=== PATIENT | female | born 1995 | race American Indian/Alaskan Native ===

== ENCOUNTER 2021-11-18 21:19 | Emergency (ER) | payer SELFPAY ==
[2021-11-18] MEDS ORDERED: Ondansetron 4 MG/2 ML SDV IVPUSH ONE (22:13)
[2021-11-18] MEDS ORDERED: Sodium Chloride 0.9% 1,000 ML IV ONE (22:13)
[2021-11-18] MEDS ORDERED: Morphine 4 MG/ML VIAL IVPUSH ONE (22:13)
[2021-11-18 22:50] LABS: BLOOD UREA NITROGEN,BUN 10 mg/dL (7.0-18.0); CARBON DIOXIDE,CO2 25.6 mmol/L (21.0-32.0); CHLORIDE,CL 103 mmol/L (98-107); GLUCOSE RANDOM 96 mg/dL (74-106); LIPASE 74 U/L (73-393); POTASSIUM,K 3.9 mmol/L (3.5-5.1); SODIUM,NA 140 mmol/L (136-145)
[2021-11-18] MEDS ORDERED: HYDROmorphone 1 MG/ML Syringe IVPUSH ONE (23:03)
[2021-11-19] MEDS ORDERED: Iopamidol 755 MG/ML 500 ML Multipack Bottle IVPUSH STA (00:10)
[2021-11-19] MEDS ORDERED: HYDROmorphone 1 MG/ML Syringe IVPUSH ONE (01:15)
[2021-11-19] MEDS ORDERED: Acetaminophen/oxyCODONE 325-5 MG Tab PO ONE (02:39)
== END 2021-11-19 02:46 | disposition home or self-care (01) ==
LOC: MW.ED 21:19
DX: N83.201 Unspecified ovarian cyst, right side (principal)
CPT/HCPCS: 36415; 74177; 76857; 80053; 81003; 83690; 84703; 85025; 96374; 96375; 96376; 99284; A9270; J1170; J2270; J2405; J7030; Q9967

== ENCOUNTER 2022-02-01 17:39 | Emergency (ER) | payer MEDICAID, OTHER | END 2022-02-01 18:00 | LOC: MW.ED 17:39 | DX: Z02.89 Encounter for other administrative examinations (principal) | CPT/HCPCS: 99281; 99283 ==

== ENCOUNTER 2022-03-09 19:16 | Emergency (ER) | payer MEDICAID, OTHER | END 2022-03-09 20:25 | disposition home or self-care (01) | LOC: MW.ED 19:16 | DX: N39.0 Urinary tract infection, site not specified (principal) | CPT/HCPCS: 81001; 81025; 87086; 87088; 87186; 99283 ==

== ENCOUNTER 2022-04-12 20:23 | Emergency (ER) | payer MEDICAID, OTHER ==
[2022-04-12] MEDS ORDERED: cefTRIAXone 1 GM Vial IM ONE (21:18)
[2022-04-12] MEDS ORDERED: Ciprofloxacin 500 MG Tab PO ONE (21:19)
[2022-04-12] MEDS ORDERED: Phenazopyridine 200 MG Tab PO ONE (21:19)
[2022-04-12] MEDS ORDERED: Acetaminophen/HYDROcodone 325-5 MG Tab PO ONE (21:36)
[2022-04-12] MEDS ORDERED: Lidocaine 1% 5 ML VIAL ONE (22:14)
[2022-04-12] MEDS ORDERED: Lidocaine 1% 5 ML VIAL INJECT ONE (22:22)
== END 2022-04-12 22:47 | disposition home or self-care (01) ==
LOC: MW.ED 20:23
DX: N11.1 Chronic obstructive pyelonephritis (principal)
CPT/HCPCS: 81001; 87086; 96372; 99284; A9270; J0696; 99283

== ENCOUNTER 2022-04-22 21:28 | Emergency (ER) | payer OTHER, MEDICAID ==
[2022-04-22] MEDS ORDERED: Sodium Chloride 0.9% 1,000 ML IV ONE (21:34)
[2022-04-22] MEDS ORDERED: Diphtheria,Pertussis(Acell),Tetanus Vaccine 0.5 ML Syringe IM ONE (21:36)
[2022-04-22] MEDS ORDERED: fentaNYL 50 MCG/ML SDV IVPUSH ONE ×2 (21:36→23:09)
[2022-04-22] MEDS ORDERED: ceFAZolin 1 GM in Premix Bag 1 BAG IV ONE (22:33)
[2022-04-22 22:36] LABS: BLOOD UREA NITROGEN,BUN 7 mg/dL (7.0-18.0); CARBON DIOXIDE,CO2 19.3 mmol/L (21.0-32.0); CHLORIDE,CL 107 mmol/L (98-107); GLUCOSE RANDOM 117 mg/dL (74-106); POTASSIUM,K 3.4 mmol/L (3.5-5.1); SODIUM,NA 143 mmol/L (136-145)
[2022-04-22 22:39] LABS: ESTIMATED GFR 122 mL/min (>60)
[2022-04-22] MEDS ORDERED: Tranexamic Acid 1,000 MG in Sodium Chloride 0.9% 100 ML IV ONE (22:48)
[2022-04-22] MEDS ORDERED: Iopamidol 755 MG/ML 500 ML Multipack Bottle IVPUSH ONE (23:56)
== END 2022-04-22 23:45 ==
LOC: MW.ED 21:28
DX: S32.9XXA Fracture of unspecified parts of lumbosacral spine and pelvis, initial encounter for closed fracture (principal); S22.32XA Fracture of one rib, left side, initial encounter for closed fracture; S22.079A Unspecified fracture of T9-T10 vertebra, initial encounter for closed fracture; S32.019A Unspecified fracture of first lumbar vertebra, initial encounter for closed fracture; S32.029A Unspecified fracture of second lumbar vertebra, initial encounter for closed fracture; S32.039A Unspecified fracture of third lumbar vertebra, initial encounter for closed fracture; S32.19XA Other fracture of sacrum, initial encounter for closed fracture; S32.591A Other specified fracture of right pubis, initial encounter for closed fracture; F10.129 Alcohol abuse with intoxication, unspecified; Y90.4 Blood alcohol level of 80-99 mg/100 ml; Z23 Encounter for immunization; Z20.822 Contact with and (suspected) exposure to COVID-19; V49.9XXA Car occupant (driver) (passenger) injured in unspecified traffic accident, initial encounter
CPT/HCPCS: 36415; 70450; 71045; 71260; 72125; 72128; 72131; 74177; 80053; 80307; 82550; 83735; 84484; 84703; 85025; 85610; 86850; 86900; 86901; 86920; 87635; 90471; 90715; 93005; 96361; 96365; 96368; 96375; 96376; 99291; J0690; J3010; J3490; J7030; Q9967; U0002

== ENCOUNTER 2022-06-22 19:34 | Emergency (ER) | payer OTHER ==
[2022-06-22] MEDS ORDERED: Morphine 4 MG/ML VIAL IVPUSH ONE (20:22)
[2022-06-22] MEDS ORDERED: Lactated Ringers 1,000 ML IV STA (20:59)
[2022-06-22] MEDS ORDERED: Ondansetron 4 MG/2 ML SDV IVPUSH ONE (20:59)
[2022-06-22 21:13] LABS: CARBON DIOXIDE,CO2 25.4 mmol/L (21.0-32.0); POTASSIUM,K 3.7 mmol/L (3.5-5.1)
[2022-06-22] MEDS ORDERED: HYDROmorphone 1 MG/ML Syringe IVPUSH ONE (22:33)
[2022-06-22] MEDS ORDERED: Iopamidol 755 MG/ML 500 ML Multipack Bottle IVPUSH STA (22:39)
[2022-06-23] MEDS ORDERED: Lidocaine 5% 700 MG Patch TRDERM ONE (00:15)
[2022-06-23] MEDS ORDERED: oxyCODONE 5 MG Tab PO ONE (00:33)
== END 2022-06-23 00:53 | disposition home or self-care (01) ==
LOC: MW.ED 19:34
DX: G89.18 Other acute postprocedural pain (principal); M54.6 Pain in thoracic spine; Z79.899 Other long term (current) drug therapy; Z20.822 Contact with and (suspected) exposure to COVID-19
CPT/HCPCS: 36415; 71045; 72125; 72128; 72131; 72193; 80053; 85025; 85652; 86140; 87635; 93005; 96361; 96374; 96375; 99284; A9270; J1170; J2270; J2405; J7120; Q9967; U0002

== ENCOUNTER 2022-08-16 16:08 | Emergency (ER) | payer MEDICAID, OTHER | END 2022-08-16 18:50 | disposition left against medical advice (07) | LOC: MW.ED 16:08 | DX: Z53.21 Procedure and treatment not carried out due to patient leaving prior to being seen by health care provider (principal) ==

== ENCOUNTER 2022-08-16 18:38 | Emergency (ER) | payer MEDICAID, OTHER | END 2022-08-16 19:55 | disposition left against medical advice (07) | LOC: MW.ED 18:38 | DX: Z53.21 Procedure and treatment not carried out due to patient leaving prior to being seen by health care provider (principal) ==

== ENCOUNTER 2022-08-19 10:43 | Emergency (ER) | payer MEDICAID, OTHER ==
[2022-08-19] MEDS ORDERED: Sodium Chloride 0.9% 10 ML Syringe FLUSH PRN (12:30)
[2022-08-19] MEDS ORDERED: Sodium Chloride 0.9% 2.5 ML Syringe FLUSH PRN (12:30)
[2022-08-19] MEDS ORDERED: Sodium Chloride 0.9% 1,000 ML IV ONE (12:35)
[2022-08-19] MEDS ORDERED: HYDROmorphone 1 MG/ML Syringe IVPUSH ONE (12:35)
[2022-08-19] MEDS ORDERED: Ondansetron 4 MG/2 ML SDV IVPUSH ONE ×2 (12:35→15:07)
[2022-08-19] MEDS ORDERED: Iopamidol 755 Mg/ML 100 ML Bottle IVPUSH ONE (13:54)
[2022-08-19 14:41] LABS: CARBON DIOXIDE,CO2 23.8 mmol/L (21.0-32.0); POTASSIUM,K 3.7 mmol/L (3.5-5.1)
== END 2022-08-19 15:53 | disposition home or self-care (01) ==
LOC: MW.ED 10:43
DX: M54.50 Low back pain, unspecified (principal); M79.621 Pain in right upper arm; F17.210 Nicotine dependence, cigarettes, uncomplicated; Z88.5 Allergy status to narcotic agent
CPT/HCPCS: 36415; 71260; 72132; 80053; 83735; 85025; 96361; 96374; 96375; 96376; 99284; J1170; J2405; J3490; J7030; Q9967

== ENCOUNTER 2022-10-18 10:41 | Emergency (ER) | payer MEDICAID, OTHER ==
[2022-10-18] MEDS ORDERED: oxyCODONE 5 MG Tab PO ONE (11:05)
[2022-10-18] MEDS ORDERED: Ondansetron 4 MG Tab.DIS PO ONE (11:17)
== END 2022-10-18 12:05 | disposition home or self-care (01) ==
LOC: MW.ED 10:41
DX: S92.421A Displaced fracture of distal phalanx of right great toe, initial encounter for closed fracture (principal); Z88.5 Allergy status to narcotic agent; W20.8XXA Other cause of strike by thrown, projected or falling object, initial encounter
CPT/HCPCS: 73660; 99283; A9270

== ENCOUNTER 2022-11-27 17:11 | Emergency (ER) | payer MEDICAID, OTHER | END 2022-11-27 18:24 | disposition home or self-care (01) | LOC: MW.ED 17:11 | DX: Z20.822 Contact with and (suspected) exposure to COVID-19 (principal); Z88.6 Allergy status to analgesic agent | CPT/HCPCS: 99282; U0002 ==

== ENCOUNTER 2023-03-18 14:50 | Emergency (ER) | payer MEDICAID, OTHER ==
[2023-03-18] MEDS ORDERED: HYDROmorphone 1 MG/ML Syringe IVPUSH ONE (16:14)
[2023-03-18] MEDS ORDERED: Sodium Chloride 0.9% 10 ML Syringe FLUSH PRN (16:14)
[2023-03-18] MEDS ORDERED: Sodium Chloride 0.9% 2.5 ML Syringe FLUSH PRN (16:14)
[2023-03-18 16:46] LABS: AMPHETAMINES SCREEN, URINE NEGATIVE (CUTOFF=500); BARBITURATE SCREEN,URINE NEGATIVE (CUTOFF=200); BENZODIAZEPINES SCREEN,URINE NEGATIVE (CUTOFF=150); BUPRENORPHINE SCREEN,URINE NEGATIVE (CUTOFF=10); METHADONE SCREEN, URINE NEGATIVE (CUTOFF=200); METHAMPHETAMINES SCREEN, URINE NEGATIVE (CUTOFF=500); OXYCODONE SCREEN,URINE NEGATIVE (CUT0FF=100); PCP SCREEN,URINE NEGATIVE (CUTOFF=25); PROPOXYPHENE SCREEN,URINE NEGATIVE (CUTOFF=300); THC SCREEN,URINE 20 NG/ML NEGATIVE (CUTOFF=50)
[2023-03-18 17:10] LABS: A/G RATIO 0.8 (0.9-1.6); ALBUMIN 3.6 g/dL (3.4-5.0); BILIRUBIN TOTAL 0.5 mg/dL (0.2-1.0); CALCIUM 8.8 mg/dL (8.5-10.1); CARBON DIOXIDE,CO2 25.5 mmol/L (21.0-32.0); CREATININE 0.7 mg/dL (0.6-1.0); EST CRCL DRUG DOSING (CG) 99.86 mL/min; POTASSIUM,K 4.1 mmol/L (3.5-5.1); PROTEIN TOTAL,TP 8.1 g/dL (6.4-8.2)
[2023-03-18 17:36] LABS: BASOPHILS PERCENT AUTO 0.2 % (0.0-1.5); EOSINOPHILS ABSOLUTE AUTO 0.1 K/uL (0.0-0.7); EOSINOPHILS PERCENT AUTO 1.2 % (0.0-7.0); HEMATOCRIT 36.2 % (36.0-46.0); HEMOGLOBIN 11.6 g/dL (12.0-16.0); LYMPHOCYTES ABSOLUTE AUTO 1.4 K/uL (0.6-2.4); LYMPHOCYTES PERCENT AUTO 26.4 % (16.0-40.0); MEAN CORPUSCULAR HEMOGLOBIN 25.3 pg (27.0-32.0); MEAN CORPUSCULAR VOLUME 78.9 fL (80.0-98.0); MONOCYTES ABSOLUTE AUTO 0.4 K/uL (0.0-0.8); MONOCYTES PERCENT AUTO 8.5 % (0.0-15.0); NEUTROPHILS ABSOLUTE AUTO 3.3 K/uL (1.4-5.7); NEUTROPHILS PERCENT AUTO 63.7 % (48.0-80.0); PLATELET COUNT,PLT 328 K/uL (150-400); RED BLOOD CELL COUNT 4.59 M/uL (4.30-5.90); WHITE BLOOD CELL COUNT,WBC 5.15 K/uL (4.0-11.0)
== END 2023-03-18 19:21 | disposition home or self-care (01) ==
LOC: MW.ED 14:50
DX: M54.6 Pain in thoracic spine (principal); Z88.5 Allergy status to narcotic agent
CPT/HCPCS: 36415; 72128; 72131; 80053; 80305; 81025; 83605; 83690; 85025; 96374; 99284; J1170; J3490

== ENCOUNTER 2023-10-30 21:11 | Emergency (ER) | payer OTHER ==
[2023-10-30] MEDS ORDERED: Ondansetron 4 MG Tab.DIS PO ONE (21:25)
[2023-10-30 22:35] LABS: CORONAVIRUS COVID-19 NAA NEGATIVE (NEGATIVE); INFLUENZA A NAA NEGATIVE (NEGATIVE); INFLUENZA B NAA NEGATIVE (NEGATIVE)
== END 2023-10-30 22:45 | disposition home or self-care (01) ==
LOC: MW.ED 21:11
DX: J32.9 Chronic sinusitis, unspecified (principal); Z88.5 Allergy status to narcotic agent; Z79.899 Other long term (current) drug therapy; Z20.822 Contact with and (suspected) exposure to COVID-19
CPT/HCPCS: 0240U; 71045; 99285; A9270

== ENCOUNTER 2023-12-18 21:50 | Emergency (ER) | payer OTHER ==
[2023-12-18] MEDS: Ketorolac 30 MG/ML SDV IM ONE (22:43)
[2023-12-19] MEDS: Acetaminophen/HYDROcodone 325-5 MG Tab PO ONE (00:33)
== END 2023-12-19 00:36 | disposition home or self-care (01) ==
LOC: MW.ED 21:50
DX: M25.551 Pain in right hip (principal); M54.31 Sciatica, right side; Z88.5 Allergy status to narcotic agent; Z79.899 Other long term (current) drug therapy
CPT/HCPCS: 73502; 96372; 99283; A9270; J1885; J3360

== ENCOUNTER 2024-04-04 13:05 | Emergency (ER) | payer OTHER ==
[2024-04-04] MEDS: fentaNYL 50 MCG/ML SDV IVPUSH STA (13:49)
[2024-04-04] MEDS: Ondansetron 4 MG/2 ML SDV IVPUSH STA (13:49)
[2024-04-04] MEDS: oxyCODONE 5 MG Tab PO STA (15:14)
== END 2024-04-04 17:01 | disposition left against medical advice (07) ==
LOC: MW.ED 13:05
DX: S92.345A Nondisplaced fracture of fourth metatarsal bone, left foot, initial encounter for closed fracture (principal); S82.832A Other fracture of upper and lower end of left fibula, initial encounter for closed fracture; S93.622A Sprain of tarsometatarsal ligament of left foot, initial encounter; V03.10XA Pedestrian on foot injured in collision with car, pick-up truck or van in traffic accident, initial encounter; Y92.410 Unspecified street and highway as the place of occurrence of the external cause; Z75.8 Other problems related to medical facilities and other health care; Z88.5 Allergy status to narcotic agent
CPT/HCPCS: 27825; 70450; 72125; 73590; 73610; 73630; 96374; 96375; 99284; A9270; J2405; J3010

== ENCOUNTER 2024-04-27 13:53 | Emergency (ER) | payer OTHER | END 2024-04-27 15:17 | disposition home or self-care (01) | LOC: MW.ED 13:53 | DX: L97.921 Non-pressure chronic ulcer of unspecified part of left lower leg limited to breakdown of skin (principal); Z79.899 Other long term (current) drug therapy | CPT/HCPCS: 99282 ==

== ENCOUNTER 2024-09-17 13:22 | Emergency (ER) | payer OTHER ==
[2024-09-17] MEDS ORDERED: Sodium Chloride 0.9% 10 ML Syringe FLUSH PRN ×2 (13:46→13:53)
[2024-09-17] MEDS ORDERED: Sodium Chloride 0.9% 2.5 ML Syringe FLUSH PRN ×2 (13:46→13:53)
[2024-09-17] MEDS: Sodium Chloride 0.9% 1,000 ML IV ONE ×2 (14:07)
[2024-09-17] MEDS: Ondansetron 4 MG/2 ML SDV IVPUSH ONE (14:08)
== END 2024-09-17 17:10 | disposition home or self-care (01) ==
LOC: MW.ED 13:22
DX: O21.9 Vomiting of pregnancy, unspecified (principal); O99.891 Other specified diseases and conditions complicating pregnancy; R10.9 Unspecified abdominal pain; Z75.8 Other problems related to medical facilities and other health care; Z88.5 Allergy status to narcotic agent; Z79.899 Other long term (current) drug therapy; Z3A.13 13 weeks gestation of pregnancy
CPT/HCPCS: 96374; 99283; J2405; J7030

== ENCOUNTER 2025-09-04 17:22 | Emergency (ER) | payer OTHER ==
[2025-09-04] MEDS: Ketorolac 30 MG/ML SDV IM ONE (18:36)
== END 2025-09-04 18:40 | disposition home or self-care (01) ==
LOC: MW.ED 17:22
DX: M79.675 Pain in left toe(s) (principal); L98.9 Disorder of the skin and subcutaneous tissue, unspecified; Z88.6 Allergy status to analgesic agent
CPT/HCPCS: 96372; 99283; A9270; J1885